=== PATIENT | female | born 1945 | race Hispanic/Latino ===

== ENCOUNTER → 2020-09-06 | Outpatient (CLI) | payer OTHER ==
[~2020-09-06] MED LIST: AMOX-429 PO; ATOR10 PO; IOHEXOL 350 MG/ML 100ML INFUS..BTL IV ONE; LEFL20TA18 PO; MEGE400O4 PO; MIRT7.5T11 PO; PRED5TAB PO; VIT1TABL6 PO
== END | disposition home or self-care (01) ==
LOC: RAH 09:35
PROVIDERS: ATTEND Internal Medicine Cardiovascular Disease
DX: I71.4 Abdominal aortic aneurysm, without rupture (principal); K44.9 Diaphragmatic hernia without obstruction or gangrene; N20.0 Calculus of kidney; K74.00 Hepatic fibrosis, unspecified
CPT/HCPCS: 74174; Q9967